=== PATIENT | female | born 2000 | race Caucasian/White ===

== ENCOUNTER 2021-05-04 12:05 | Emergency (ER) | payer OTHER, SELFPAY ==
--- NOTE | 2021-05-04 12:16 | ED.URI ---
HPI - URI/Sore Throat General Chief Complaint: Upper Respiratory Infection Stated Complaint: Throat pain Time Seen by Provider: 05/04/21 12:16 Source: patient and RN notes reviewed History of Present Illness HPI Narrative: Patient is a 20-year-old female who presents the urgent care with complaints of a sore throat for 2 days. Patient states that she has had tonsil stones in the past but did not see any white spots . Patient denies of any fever, chills, nausea, vomiting, headache. Denies of any known exposure to Covid, influenza or strep. Denies of any use of [id number] medication for her symptoms. No other acute complaints. No acute distress noted. Patient aware of the plan of care. Some parts of this dictation were generated by voice recognition software and may contain typographical and/or grammatical inaccuracies. Related Data Home Medications Medication Instructions Recorded Confirmed esomeprazole magnesium 40 mg PO DAILY 05/04/21 05/04/21 fluoxetine 20 mg PO DAILY 05/04/21 05/04/21 metoprolol succinate 25 mg PO DAILY 05/04/21 05/04/21 ubrogepant [Ubrelvy] 50 mg PO DIRECTED PRN 05/04/21 05/04/21 Allergies Allergy/AdvReac Type Severity Reaction Status Date / Time No Known Allergies Allergy Verified 05/04/21 12:24 Review of Systems Review of Systems: Narrative: CONSTITUTIONAL: Denies fever, chills, or sweats. EYES: Denies visual changes, redness, or discharge. ENT: Denies rhinorrhea, congestion, otalgia. Reports of sore throat CARDIOVASCULAR: Denies chest pain, palpitations, or edema. RESPIRATORY: Denies cough or dyspnea. GASTROINTESTINAL: Denies abdominal pain, nausea, vomiting, or diarrhea. GENITOURINARY: Denies dysuria or hematuria. SKIN: Denies rash or itching. MUSCULOSKELETAL: Denies back pain, joint pain, or myalgia. NEUROLOGIC: Denies headache, numbness, or weakness. All other systems reviewed are negative, except as documented in HPI. [facility] Social History Social History Gender identity (if verbalized by the patient): Female Comments At the time of my signature, I reviewed and agree with the nursing past medical, surgical, social, and family history. There is no relevant family history pertinent to the patient complaint. Exam Narrative: Exam Narrative: GENERAL: This is a well-nourished, well-developed patient, in no apparent distress. HEAD: normocephalic, atraumatic. EYES: PERRL. Sclera clear/white. Vision is grossly intact. EARS: External ears normal, auditory canals clear and without drainage, TMs normal without perforation. Hearing grossly intact. NOSE: External nose normal with no obvious nasal discharge, nares without redness, no rhinorrhea. THROAT: Mucous membranes moist, mild erythema noted posterior oropharynx with mild bilateral erythemic tonsils without exudate or ulceration. Moderate postnasal drainage. NECK: Neck supple, non-tender without lymphadenopathy CARDIOVASCULAR: Regular rate and rhythm without murmurs, gallops, or rubs. RESPIRATORY: Clear to auscultation. Breath sounds equal bilaterally. No wheezes, rales, or rhonchi. SKIN: warm, intact with no suspicious lesions or rash, good texture and turgor. NEURO: awake, alert, and oriented to person, place and time. There were no obvious focal neurologic abnormalities. EXTREMITIES: No clubbing, cyanosis, or edema. Course Vital Signs Vital signs: Vital Signs Temperature 96.9 F L 05/04/21 12:17 Pulse Rate 100 05/04/21 12:17 Respiratory Rate 16 05/04/21 12:17 Blood Pressure 137/67 05/04/21 12:17 Temperature 96.9 F L 05/04/21 12:17 Pulse Rate 100 05/04/21 12:17 Respiratory Rate 16 05/04/21 12:17 Blood Pressure 137/67 05/04/21 12:17 Reviewed MDM - URI/Sore Throat MDM Narrative Medical decision making narrative: Reviewed lab results with patient. She is aware that strep swab was negative. Advised the patient to use an tcta-noc-abuqiaz antihistamine such as Claritin or Zyrtec and Flonase nasa
[2021-05-04 12:17] VITALS: BP 137/67; PULSE 100; RESP 16; TEMP 36.1
== END 2021-05-04 12:36 | disposition home or self-care (01) ==
PROVIDERS: Emergency Provider Nurse Practitioner Family
DX: J02.9 Acute pharyngitis, unspecified (principal); I10 Essential (primary) hypertension; K21.9 Gastro-esophageal reflux disease without esophagitis; F41.9 Anxiety disorder, unspecified; F32.9 Major depressive disorder, single episode, unspecified
CPT/HCPCS: 87081; 87880; 99213; G0463